=== PATIENT | male | born 1970 ===

== ENCOUNTER 2017-05-01 11:43 | Emergency (ER) | payer OTHER ==
[2017-05-01 12:27] VITALS: BMI 29.1
--- NOTE | 2017-05-01 13:14 | ED PDOC ---
Arrival/HPI - General Historian: Patient - History of Present Illness Time/Duration: > month Symptom Onset: Gradual Symptom Course: Worsening Activities at Onset: Light <Ailyn Pabon - Last Filed: 05/01/17 14:56> <Rigoberto Leonardo - Last Filed: 05/01/17 20:32> - General Chief Complaint: Flu-like Symptoms Time Seen by Provider: 05/01/17 11:47 - History of Present Illness Narrative History of Present Illness (Text): CC: coughing, vomiting 46 M went to [facility] March 21 and came back in April. One week before coming back to the [place], patient started coughing, and a week later, went to Dr. Cleary and received an injection for treatment as well as ranitidine. Patient stated he still didn't feel better and returned two weeks later (one week from today) and got another treatment, Patient just finished Z-ludin. Patient started vomiting this morning with lower legs aching, patient states his fever started yesterday. Patient states his legs are aching. He admits to fever, productive cough, headache, chills, lower back pain bilaterally. Patient denies weakness, numbness, tingling, syncope, rashes, diarrhea, constipation. PMH: HTN, Heart Murmur PSH: appendectomy PMD: Dr. Cleary 05/01/17 13:12 05/01/17 13:26 (Ailyn Pabon) Past Medical History - Provider Review Nursing Documentation Reviewed: Yes - Travel History If Yes, travel location?: [facility] - Cardiac Hx Cardiac Disorders: Yes Hx Hypertension: Yes - Pulmonary Hx Respiratory Disorders: Yes Hx Bronchitis: Yes - Psychiatric Hx Substance Use: No <Ailyn Pabon - Last Filed: 05/01/17 14:56> Family/Social History - Physician Review Nursing Documentation Reviewed: Yes Family/Social History: Unknown Family HX Smoking Status: Never Smoked Hx Alcohol Use: No Hx Substance Use: No <Ailyn Pabon - Last Filed: 05/01/17 14:56> Allergies/Home Meds <Ailyn Pabon - Last Filed: 05/01/17 14:56> <Rigoberto Leonardo - Last Filed: 05/01/17 20:32> Allergies/Adverse Reactions: Allergies No Known Allergies Allergy (Verified 05/01/17 12:32) Home Medications: Home Meds Medication Instructions Recorded Confirmed Azithromycin [Z-Ludin] 250 mg PO DAILY 05/01/17 05/01/17 Guaifenesin/Pseudoephedrne HCl 1 ter PO PRN PRN 05/01/17 05/01/17 [Mucinex D 600 mg-60 mg] Ranitidine HCl [Zantac] 150 mg PO DAILY 05/01/17 05/01/17 amLODIPine [Norvasc] 5 mg PO DAILY 05/01/17 05/01/17 Review of Systems - Review of Systems Eyes: absent: Vision Changes, Photophobia, Eye Pain ENT: absent: Hearing Changes, Tinnitus, TMJ Pain Respiratory: SOB, Cough, Sputum. absent: Wheezing Cardiovascular: Palpitations. absent: Chest Pain, Edema, Calf Pain Gastrointestinal: Vomiting. absent: Abdominal Pain, Stool Changes, Constipation , Diarrhea, Appetite Changes Musculoskeletal: Back Pain (lower back pain), Other (lower extremity aches). absent: Arthralgias, Neck Pain, Joint Swelling, Myalgias Skin: absent: Rash, Pruritis, Skin Lesions Neurological: Headache. absent: Dizziness, Focal Weakness, Gait Changes, Speech Changes, Facial Droop, Disequilibrium Endocrine: absent: Diaphoresis, Polyuria, Polydipsia Hemo/Lymphatic: absent: Adenopathy, Easy Bleeding, Easy Bruising Psychiatric: absent: Anxiety, Depression, Suicidal Ideation <Ailyn Pabon - Last Filed: 05/01/17 14:56> Physical Exam Vital Signs Reviewed: Yes Temperature: Febrile Blood Pressure: Normal Pulse: Tachycardic Respiratory Rate: Normal Appearance: Positive for: Ill-Appearing, Uncomfortable Mental Status: Positive for: Alert and Oriented X 3 - Systems Exam Head: Present: Atraumatic, Normocephalic Pupils: Present: PERRL Extroacular Muscles: Present: EOMI Conjunctiva: Present: Normal Mouth: Present: Moist Mucous Membranes Nose (External): Present: Atraumatic. No: Abrasion, Contusion, Laceration Neck: Present: Normal Range of Motion, Trachea Midline. No: MIDLINE TENDERNESS , JVD Respiratory/Chest: Present: Clear to Auscultation, Good Air Exchange. No: Respiratory Distress, Accessory Muscle Use, Decreased Breath Sounds Cardiovascular: Present: Regular Rate and Rhythm, Normal S1, S2. No: Murmurs Back: Present: CVA Tenderness Upper Extremity: Present: Normal Inspection, Normal ROM, NORMAL PULSES, Capillary Refill < 2s. No: Edema Lower Extremity: Present: Normal Inspection, NORMAL PULSES, Normal ROM, Capillary Refill < 2 s. No: Edema Neurological: Present: GCS=15, CN II-XII Intact, Speech Normal, Motor Func Grossly Intact, Normal Sensory Function, Other (no nuchal rigidity) Skin: Present: Warm, Normal Color. No: Dry, Rashes Psychiatric: Present: Alert, Oriented x 3, Normal Insight, Normal Concentration <Ailyn Pabon - Last Filed: 05/01/17 14:56> Vital Signs Temp Pulse Resp BP Pulse Ox 05/01/17 15:37 100.2 F H 05/01/17 15:05 101 H 16 157/98 H 96 05/01/17 15:00 94 H 18 119/77 97 05/01/17 14:22 98.5 F 05/01/17 12:24 102.9 F H 117 H 18 111/90 97 Medical Decision Making Re-evaluation Time: 14:30 Reassessment Condition: Re-examined, Improving,but remains with symptoms - EKG Interpretation Interpreted by ED Physician: Yes Type: 12 lead EKG <Ailyn Pabon - Last Filed: 05/01/17 14:56> <Rigoberto Leonardo - Last Filed: 05/01/17 20:32> ED Course and Treatment: 05/01/17 13:17 sepsis: 102.9F, Tachycardia Tylenol 650mg PO STAT duoneb, solumedrol 125mg IVP Toradol 30mg IVP stat NS 1L bolus VBG shock panel blood culture urine culture CMP Lipase CBC CXR EKG: Sinus tachycardia at 117 bpm 05/01/17 14:45 Patient states he felt better after breathing treatment, fluids and tylenol for fever Patient's abdominal pain is more mild now Patient was told he tested positive for the flu. Patient was also told he has ketones and trace blood in his urine and advised to follow up with Dr. Cleary (Ailyn Pabon) Patient Seen With Resident: In agreement with resident note which contains more details about the patient. Patient was seen and evaluated with resident. Came up with plan and treatment together. 46 y/o M p/w myalgias and fever that began yesterday. On exam, tachycardic and warm to touch. Influenza positive, will treat with Tamiflu. (Rigoberto Leonardo) - Lab Interpretations Lab Results: 05/01/17 12:45 05/01/17 13:10 Lab Results 05/01/17 13:50: Urine Color Yellow, Urine Appearance Clear, Urine pH 7.0, Ur Specific [place] 1.020, Urine Protein Negative, Urine Glucose (UA) Negative, Urine Ketones 15 H, Urine Blood Trace-intact H, Urine Nitrate Negative, Urine Bilirubin Negative, Urine Urobilinogen 0.2, Ur Leukocyte Esterase Negative, Urine RBC 1 - 3, Urine WBC Negative, Ur Epithelial Cells 0 - 2, Urine Bacteria Trace 05/01/17 13:10: Sodium 134, Chloride 95 L, Potassium 3.6, Carbon Dioxide 26, Anion Gap 17, BUN 16, Creatinine 1.0, Est GFR ( Amer) > 60, Est GFR (Non- Af Amer) > 60, Random Glucose 112 H, Calcium 9.4, Total Bilirubin 0.7, AST 30, ALT 38, Alkaline Phosphatase 81, Total Protein 7.5, Albumin 4.4, Globulin 3.1, Albumin/Globulin Ratio 1.4, Lipase 56 05/01/17 13:10: pO2 47, VBG pH 7.41, VBG pCO2 47.0, VBG HCO3 29.8 H, VBG Total CO2 31.2 H, VBG O2 Sat (Calc) 90.0 H, VBG Base Excess 4.3 H, VBG Potassium 3.9, Sodium 133.0, Chloride 97.0 L, Glucose 114 H, Lactate 1.7, FiO2 21.0, Venous Blood Potassium 3.9 05/01/17 13:10: Influenza Typ A,B (EIA) Pos for influenza a H 05/01/17 12:45: WBC 11.3 H, RBC 4.80, Hgb 14.0, Hct 42.0, MCV 87.5, MCH 29.2, MCHC 33.3, RDW 13.8, Plt Count 142, MPV 11.7 H, Gran % 87.8 H, Lymph % (Auto) 2.5 L, Rhea % (Auto) 9.4 H, Eos % (Auto) 0.1 L, Baso % (Auto) 0.2, Gran # 9.91 H , Lymph # (Auto) 0.3 L, Rhea # (Auto) 1.1 H, Eos # (Auto) 0.0, Baso # (Auto) 0.02, Neutrophils % (Manual) 89 H, Lymphocytes % (Manual) 3 L, Monocytes % ( Manual) 8 H, Large Platelets Present 05/01/17 12:45 05/01/17 13:10 Lab Results 05/01/17 13:50: Urine Color Yellow, Urine Appearance Clear, Urine pH 7.0, Ur Specific [place] 1.020, Urine Protein Negative, Urine Glucose (UA) Negative, Urine Ketones 15 H, Urine Blood Trace-intact H, Urine Nitrate Negative, Urine Bilirubin Negative, Urine Urobilinogen 0.2, Ur Leukocyte Esterase Negative, Urine RBC 1 - 3, Urine WBC Negative, Ur Epithelial Cells 0 - 2, Urine Bacteria Trace 05/01/17 13:10: Sodium 134, Chloride 95 L, Potassium 3.6, Carbon Dioxide 26, Anion Gap 17, BUN 16, Creatinine 1.0, Est GFR ( Amer) > 60, Est GFR (Non- Af Amer) > 60, Random Glucose 112 H, Calcium 9.4, Total Bilirubin 0.7, AST 30, ALT 38, Alkaline Phosphatase 81, Total Protein 7.5, Albumin 4.4, Globulin 3.1, Albumin/Globulin Ratio 1.4, Lipase 56 05/01/17 13:10: pO2 47, VBG pH 7.41, VBG pCO2 47.0, VBG HCO3 29.8 H, VBG Total CO2 31.2 H, VBG O2 Sat (Calc) 90.0 H, VBG Base Excess 4.3 H, VBG Potassium 3.9, Sodium 133.0, Chloride 97.0 L, Glucose 114 H, Lactate 1.7, FiO2 21.0, Venous Blood Potassium 3.9 05/01/17 13:10: Influenza Typ A,B (EIA) Pos for influenza a H 05/01/17 12:45: WBC 11.3 H, RBC 4.80, Hgb 14.0, Hct 42.0, MCV 87.5, MCH 29.2, MCHC 33.3, RDW 13.8, Plt Count 142, MPV 11.7 H, Gran % 87.8 H, Lymph % (Auto) 2.5 L, Rhea % (Auto) 9.4 H, Eos % (Auto) 0.1 L, Baso % (Auto) 0.2, Gran # 9.91 H , Lymph # (Auto) 0.3 L, Rhea # (Auto) 1.1 H, Eos # (Auto) 0.0, Baso # (Auto) 0.02, Neutrophils % (Manual) 89 H, Lymphocytes % (Manual) 3 L, Monocytes % ( Manual) 8 H, Large Platelets Present urine positive for ketones and trace blood leukocytosis 11.3 (Eng,Ailyn) - RAD Interpretation Radiology Orders: 05/01/17 12:45 CHEST TWO VIEWS (PA/LAT) [RAD] Stat - EKG Interpretation EKG Interpretation (Text): 05/01/17 13:17 Sinus tachycardia at 117 bpm (Eng,Ailyn) - Medication Orders Current Medication Orders: Discontinued Medications Acetaminophen (Tylenol 325mg Tab) 650 mg PO STAT STA Stop: 05/01/17 13:00 Last Admin: 05/01/17 13:22 Dose: 650 mg MAR Pain/Vitals Document 05/01/17 13:22 HI (Rec: 05/01/17 13:22 [id number]) Pain Reassessment Is This A Pain ReAssessment? No Re-Assess: [facility] Pain/Vitals Document 05/01/17 14:22 HI (Rec: 05/01/17 16:02 [id number]) Vitals Temperature (97.6 F-99.6 F) 98.5 F Temperature Source Oral Albuterol/Ipratropium (Duoneb 3 Mg/0.5 Mg (3 Ml) Ud) 3 ml IH STAT STA Stop: 05/01/17 13:09 Last Admin: 05/01/17 13:22 Dose: 3 ml Sodium Chloride (Sodium Chloride 0.9%) 1,000 mls @ 999 mls/hr IV .Q1H1M STA Stop: 05/01/17 13:46 Last Admin: 05/01/17 13:23 Dose: 999 mls/hr eMAR Start Stop Document 05/01/17 13:23 HI (Rec: 05/01/17 13:23 [id number]) Intravenous Solution Start Date 05/01/17 Start Time 13:23 Sodium Chloride (Sodium Chloride 0.9%) 1,000 mls @ 999 mls/hr IV .Q1H1M STA Stop: 05/01/17 15:31 Last Admin: 05/01/17 16:00 Dose: 999 mls/hr eMAR Start Stop Document 05/01/17 16:00 HI (Rec: 05/01/17 16:00 HI [id number]) Intravenous Solution Start Date 05/01/17 Start Time 16:00 Ketorolac Tromethamine (Toradol) 30 mg IVP STAT STA Stop: 05/01/17 12:47 Last Admin: 05/01/17 13:22 Dose: 30 mg MAR Pain Assessment Document 05/01/17 13:22 HI (Rec: 05/01/17 13:22 HI [id number]) Pain Reassessment Is this a pain reassessment? No Sleep Is patient sleeping during reassessment? No Presence of Pain Presence of Pain Yes Location Pain Location Body Site Generalized IVP Administration Document 05/01/17 13:22 HI (Rec: 05/01/17 13:22 HI [id number]) Charges for Administration # of IVP Administrations 1 Methylprednisolone (Solu-Medrol) 125 mg IVP STAT STA Stop: 05/01/17 13:09 Last Admin: 05/01/17 13:21 Dose: 125 mg IVP Administration Document 05/01/17 13:21 HI (Rec: 05/01/17 13:21 HI [id number]) Charges for Administration # of IVP Administrations 1 Ondansetron HCl (Zofran Inj) 8 mg IVP STAT STA Stop: 05/01/17 13:14 Last Admin: 05/01/17 13:22 Dose: 8 mg IVP Administration Document 05/01/17 13:22 HI (Rec: 05/01/17 13:23 HI [id number]) Charges for Administration # of IVP Administrations 1 Disposition/Present on Arrival - Present on Arrival Any Indicators Present on Arrival: No History of DVT/PE: No History of Uncontrolled Diabetes: No Urinary Catheter: No History of Decub. Ulcer: No History Surgical Site Infection Following: None - Disposition Have Diagnosis and Disposition been Completed?: Yes Disposition Time: 14:46 Patient Plan: Discharge <Ailyn Pabon - Last Filed: 05/01/17 14:56> - Disposition Disposition Time: 14:12 <Rigoberto Leonardo - Last Filed: 05/01/17 20:32> - Disposition Diagnosis: Influenza, Viral gastritis Disposition: HOME/ ROUTINE Condition: IMPROVED Additional Instructions: Chest xray showed no infiltrates Patient was also told he has ketones and trace blood in his urine and advised to follow up with Dr. Cleary Patient tested positive for the flu take tylenol as directed on bottle for fever stay hydrated, take zofran as needed for nausea, return to emergency room if extreme abdominal pain, nausea, vomiting, diarrhea, blood in stool and blood in vomit Prescriptions: Ondansetron ODT [Zofran ODT] 8 mg PO Q6H #12 odt Oseltamivir Phosphate [Tamiflu] 30 mg PO BID #10 capsule Referrals: Alfredo Cleary [Primary Care Provider] - Follow up with primary Forms: [employer] [employer] (Maltese)
[2017-05-01] MEDS: Albuterol-Ipratrop 3 mg / 0.5 (3 ml) UD IH STA (13:22)
[2017-05-01] MEDS: Sodium Chloride 0.9% 1,000 ML IV STA ×2 (13:23→16:00)
[2017-05-01 13:35] LABS: VENOUS BLOOD GAS BASE EXCESS 4.3 mmol/L (0.0-2.0); VENOUS BLOOD GAS PO2 47 mm/Hg (30-55); VENOUS BLOOD PH 7.41 (7.32-7.43)
[2017-05-01 13:37] LABS: BASO # 0.02 K/mm3 (0.0-2.0); BASO % 0.2 % (0.0-3.0); EOS % 0.1 % (1.5-5.0); GRAN # 9.91 (1.4-6.5); GRAN % 87.8 % (50.0-68.0); LYMPH # 0.3 (1.2-3.4); LYMPH % 2.5 % (22.0-35.0); MEAN CELL VOLUME 87.5 fl (80.0-105.0); MEAN CORPUSCULAR HEMOGLOBIN 29.2 pg (25.0-35.0); MEAN CORPUSCULAR HGB CONC 33.3 g/dl (31.0-37.0); MEAN PLATELET VOLUME 11.7 fl (7.0-11.0); MONO # 1.1 (0.1-0.6); MONO % 9.4 % (1.0-6.0); PLATELET COUNT 142 10^3/uL (120.0-450.0); RED CELL DISTRIBUTION WIDTH 13.8 % (11.5-14.5); WHITE BLOOD COUNT 11.3 10^3/ul (4.5-11.0)
[2017-05-01 13:47] LABS: ALB/GLOB RATIO 1.4 (1.1-1.8); ALBUMIN 4.4 g/dL (3.0-4.8); ALT/SGPT 38 U/L (7-56); AST/SGOT 30 U/L (17-59); BLOOD UREA NITROGEN 16 mg/dL (7-21); CALCIUM 9.4 mg/dL (8.4-10.5); GFR AFRICAN-AMERICAN > 60; GFR NON-AFRICAN AMERICAN > 60; LIPASE 56 U/L (23-300)
[2017-05-01 14:05] LABS: URINE BILIRUBIN NEGATIVE (NEGATIVE); URINE BLOOD TRACE-INTACT (NEGATIVE); URINE GLUCOSE (UA) NEGATIVE (NEGATIVE); URINE LEUKOCYTE ESTERASE NEGATIVE Leu/uL (NEGATIVE); URINE NITRATE NEGATIVE (NEGATIVE); URINE PROTEIN NEGATIVE mg/dL (<30 mg/dL); URINE UROBILINOGEN 0.2 E.U./dL (<1 E.U./dL)
[2017-05-01 14:06] LABS: URINE APPEARANCE CLEAR (CLEAR); URINE COLOR YELLOW (YELLOW)
[2017-05-01 14:17] LABS: URINE EPITHELIAL CELLS 0 - 2 /hpf (0-5)
[2017-05-01 14:18] LABS: URINE BACTERIA TRACE (NEG); URINE WBC NEGATIVE /hpf (0-6)
[2017-05-01 14:47] LABS: LARGE PLATELETS PRESENT; LYMPHOCYTE 3 % (22.0-35.0); MONOCYTE 8 % (1.0-6.0); NEUTROPHIL 89 % (50.0-70.0)
[2017-05-01 15:06] VITALS: BP 157/98; PULSE 101; RESP 16; O2SAT 96
--- NOTE | 2017-05-01 15:33 | RAD ---
HISTORY: cough COMPARISON: No prior. TECHNIQUE: Chest PA and lateral FINDINGS: LUNGS: No active pulmonary disease. PLEURA: No significant pleural effusion identified. No pneumothorax apparent. CARDIOVASCULAR: Normal. OSSEOUS STRUCTURES: No significant abnormalities. VISUALIZED UPPER ABDOMEN: Normal. OTHER FINDINGS: None. IMPRESSION: No active disease.
[2017-05-01 15:37] VITALS: TEMP 100.2
--- NOTE | 2017-05-01 18:11 | CARD ---
APPROVED REPORT EKG Measurement Heart [id number] NM [id number] <Conclusion> Sinus tachycardia Voltage criteria for left ventricular hypertrophy Abnormal ECG
== END 2017-05-01 16:30 | disposition home or self-care (01) ==
LOC: ED 11:43
DX: J11.1 Influenza due to unidentified influenza virus with other respiratory manifestations (principal); A08.4 Viral intestinal infection, unspecified; I10 Essential (primary) hypertension
CPT/HCPCS: 71046; 80053; 81001; 82803; 83690; 85025; 87040; 87086; 87804; 93005; 96374; 96375; 99284; J1885; J2405; J2930; J7040